=== PATIENT | female | born 1950 | race Caucasian/White ===

== ENCOUNTER → 2023-09-18 08:28 | Outpatient (REF) | payer MEDICARE, OTHER, SELFPAY ==
[2023-09-18 10:07] LABS: % Basophils 1.3 % (0-2); % Eosinophils 4.7 % (0-6); % Immature Granulocytes 0.3 % (0-0.5); % Monocytes 8.9 % (1.7-9.3); % Neutrophils 37.8 % (42.2-75.2); Absolute Basophils 0.1 10^3/uL (0-0.2); Absolute Eosinophils 0.3 10^3/uL (0-0.7); Absolute Lymphocytes 2.9 10^3/uL (1.2-3.4); Absolute Monocytes 0.6 10^3/uL (0.1-0.6); Absolute Neutrophils 2.3 10^3/uL (1.4-6.5); Hematocrit 33.2 % (37.0-47.0); Hemoglobin 11.1 g/dL (12.0-16.0); Mean Corp Hgb Conc. 33.4 g/dL (33.0-37.0); Mean Corpuscular Hgb 29.7 pg (27.0-31.0); Mean Corpuscular Volume 88.8 fL (81.0-99.0); Mean Platelet Volume 8.8 fL (7.4-10.4); Nucleated Red Blood Cells % 0 %; Platelet Count 366 10^3/uL (130-400); Red Blood Cell Count 3.74 10^6/uL (4.20-5.40); White Blood Cell Count 6.2 10^3/uL (4.8-10.8)
[2023-09-18 10:34] LABS: ALT (SGPT) 14 U/L (0-35); AST (SGOT) 21 U/L (14-36); Albumin 3.6 g/dl (3.5-5.0); Alkaline Phosphatase 60 U/L (38-126); Blood Urea Nitrogen 14 mg/dl (7-17); Calcium 9.4 mg/dl (8.4-10.2); Carbon Dioxide 27 mmol/L (22-30); Chloride 102 mmol/L (98-107); Glucose 105 mg/dl (70-99); HDL Cholesterol 59 mg/dl; LDL Cholesterol, Calculated 72 mg/dl; Potassium 4.1 mmol/L (3.5-5.1); Sodium 137 mmol/L (135-145); Total Bilirubin 0.4 mg/dl (0.2-1.3); Total Cholesterol 152 mg/dl (50-199); Total Protein 6.3 g/dl (6.3-8.2); Triglyceride 106 mg/dl (10-149); Very Low Density Lipoprotein 21 mg/dl (0-30); eGFR > 60.00
== END ==
LOC: HWLAB 08:28
PROVIDERS: ATTENDING PHYSICIAN Internal Medicine
DX: Z00.00 Encounter for general adult medical examination without abnormal findings (principal); E78.5 Hyperlipidemia, unspecified; I10 Essential (primary) hypertension
CPT/HCPCS: 36415; 80053; 80061; 85025

== ENCOUNTER → 2023-12-24 11:41 | Outpatient (REF) | payer MEDICARE, OTHER, SELFPAY ==
[2023-12-24 14:47] LABS: % Basophils 1.1 % (0-2); % Eosinophils 3.3 % (0-6); % Immature Granulocytes 0.2 % (0-0.5); % Lymphocytes 28.7 % (20.5-51.1); % Monocytes 8.6 % (1.7-9.3); % Neutrophils 58.1 % (42.2-75.2); Absolute Basophils 0.1 10^3/uL (0-0.2); Absolute Eosinophils 0.2 10^3/uL (0-0.7); Absolute Lymphocytes 1.6 10^3/uL (1.2-3.4); Absolute Monocytes 0.5 10^3/uL (0.1-0.6); Absolute Neutrophils 3.3 10^3/uL (1.4-6.5); Hematocrit 33.5 % (37.0-47.0); Hemoglobin 11.4 g/dL (12.0-16.0); Mean Corpuscular Volume 88.2 fL (81.0-99.0); Mean Platelet Volume 8.8 fL (7.4-10.4); Nucleated Red Blood Cells % 0 %; Platelet Count 373 10^3/uL (130-400); Red Cell Dist. Width 12.6 % (11.5-14.5); White Blood Cell Count 5.7 10^3/uL (4.8-10.8)
[2023-12-24 14:52] LABS: Urine Albumin Negative (Neg - Trace); Urine Bilirubin Negative (Negative); Urine Character Clear (Clear); Urine Color Yellow; Urine Glucose Negative (Negative); Urine Ketone Negative (Negative); Urine Leukocyte Negative (Negative); Urine Nitrite Negative (Negative); Urine Occult Blood Negative (Negative); Urine Specific Gravity 1.005 (<1.030); Urine Urobilinogen Negative (Neg - 1+)
[2023-12-24 15:21] LABS: Iron 120 ug/dl (37-170)
[2023-12-24 15:32] LABS: Percent Saturation 35 % (20-50); Total Iron Binding Capacity 339 ug/dl (265-497)
== END ==
LOC: HWLAB 11:41
PROVIDERS: ATTENDING PHYSICIAN Internal Medicine
DX: Z00.00 Encounter for general adult medical examination without abnormal findings (principal); E78.5 Hyperlipidemia, unspecified; I10 Essential (primary) hypertension; D64.9 Anemia, unspecified
CPT/HCPCS: 36415; 81003; 83540; 83550; 85025

== ENCOUNTER → 2024-04-11 10:12 | Outpatient (REF) | payer MEDICARE, OTHER, SELFPAY ==
[2024-04-11 11:39] LABS: % Basophils 0.5 % (0-2); % Eosinophils 0.2 % (0-6); % Immature Granulocytes 0.8 % (0-0.5); % Lymphocytes 34.8 % (20.5-51.1); % Monocytes 9.2 % (1.7-9.3); % Neutrophils 54.5 % (42.2-75.2); Absolute Basophils 0.1 10^3/uL (0-0.2); Absolute Immature Granulocytes 0.1 10^3/uL (0-0.05); Absolute Lymphocytes 4.5 10^3/uL (1.2-3.4); Absolute Monocytes 1.2 10^3/uL (0.1-0.6); Absolute Neutrophils 7.1 10^3/uL (1.4-6.5); Hematocrit 33.8 % (37.0-47.0); Hemoglobin 11.8 g/dL (12.0-16.0); Mean Corp Hgb Conc. 34.9 g/dL (33.0-37.0); Mean Corpuscular Volume 88.7 fL (81.0-99.0); Mean Platelet Volume 8.8 fL (7.4-10.4); Nucleated Red Blood Cells % 0 %; Platelet Count 407 10^3/uL (130-400); Red Blood Cell Count 3.81 10^6/uL (4.20-5.40)
[2024-04-11 12:24] LABS: ALT (SGPT) 17 U/L (0-35); AST (SGOT) 21 U/L (14-36); Albumin 4.3 g/dl (3.5-5.0); Alkaline Phosphatase 66 U/L (38-126); Blood Urea Nitrogen 20 mg/dl (7-17); Carbon Dioxide 30 mmol/L (22-30); Chloride 100 mmol/L (98-107); Direct Bilirubin 0.3 mg/dl (0.0-0.4); Glucose 95 mg/dl (70-99); Potassium 4.1 mmol/L (3.5-5.1); Sodium 137 mmol/L (135-145); Total Bilirubin 0.4 mg/dl (0.2-1.3); Total Protein 7.2 g/dl (6.3-8.2); eGFR > 60.00
[2024-04-11 12:52] LABS: TSH Reflex To Free T4 0.81 uIU/ml (0.47-4.68)
== END ==
LOC: HWLAB 10:12
PROVIDERS: ATTENDING PHYSICIAN Specialist; FAMILY PHYSICIAN Internal Medicine
DX: R21 Rash and other nonspecific skin eruption (principal); L29.8 Other pruritus; I10 Essential (primary) hypertension
CPT/HCPCS: 36415; 80048; 80076; 84443; 85025

== ENCOUNTER 2024-08-30 10:31 | Emergency (ER) | payer MEDICARE, OTHER, SELFPAY ==
[2024-08-30 10:41] VITALS: BP 139/85
[2024-08-30 11:15] VITALS: BMI 29.2
[2024-08-30 11:23] VITALS: BP 146/107
[2024-08-30] MEDS: NSS 1000 IV ×2 (11:31→13:16)
[2024-08-30 11:36] LABS: % Basophils 0.2 % (0-2); % Immature Granulocytes 0.4 % (0-0.5); % Lymphocytes 10.8 % (20.5-51.1); % Monocytes 10.5 % (1.7-9.3); % Neutrophils 78.1 % (42.2-75.2); Absolute Immature Granulocytes 0.1 10^3/uL (0-0.05); Absolute Lymphocytes 1.4 10^3/uL (1.2-3.4); Absolute Monocytes 1.4 10^3/uL (0.1-0.6); Absolute Neutrophils 10.1 10^3/uL (1.4-6.5); Hematocrit 40.7 % (37.0-47.0); Hemoglobin 14.1 g/dL (12.0-16.0); Mean Corp Hgb Conc. 34.6 g/dL (33.0-37.0); Mean Corpuscular Hgb 28.5 pg (27.0-31.0); Mean Corpuscular Volume 82.2 fL (81.0-99.0); Mean Platelet Volume 8.9 fL (7.4-10.4); Nucleated Red Blood Cells % 0 %; Platelet Count 349 10^3/uL (130-400); Red Blood Cell Count 4.95 10^6/uL (4.20-5.40); Red Cell Dist. Width 12.7 % (11.5-14.5); White Blood Cell Count 12.9 10^3/uL (4.8-10.8)
[2024-08-30 11:49] LABS: ALT (SGPT) 23 U/L (0-35); AST (SGOT) 30 U/L (14-36); Albumin 4.9 g/dl (3.5-5.0); Alkaline Phosphatase 69 U/L (38-126); Blood Urea Nitrogen 32 mg/dl (7-17); Calcium 9.8 mg/dl (8.4-10.2); Carbon Dioxide 19 mmol/L (22-30); Chloride 104 mmol/L (98-107); Estimated Creatinine Clearance 62 ml/min; Glucose 123 mg/dl (70-99); Magnesium 2.4 mg/dl (1.6-2.3); Potassium 4.2 mmol/L (3.5-5.1); Sodium 140 mmol/L (135-145); eGFR > 60.00
[2024-08-30 12:00] VITALS: BP 130/64
--- NOTE | 2024-08-30 12:18 | ED.GENMED ---
History of Present Illness
General
Chief Complaint: Abdominal Symptoms
Time Seen by Provider: 08/30/24 11:13
History of Present Illness
History of Present Illness:
TIME OF INITIAL ENCOUNTER: 1 PM
HPI: The patient was brought here by her son due to concerns of dehydration. For 5 days ago, the patient had some nausea and loose stool. She no longer has any loose stool but has since had very poor p.o. intake. Her son try to get some
electrolytes into her last night but he was very concerned of dehydration. She had very poor p.o. intake recently. She has some back pain related to being on the stretcher but has no significant abdominal pain.
EXAM:
GENERAL: Appears somewhat generally weak
HEENT: Dry oral mucosa
CARDIOVASCULAR: No murmurs, borderline tachycardic heart rate, regular rhythm, No chest wall tenderness
PULMONARY: No respiratory distress, breath sounds are clear and equal
ABDOMEN: Soft with no peritoneal signs, no tenderness
NEUROLOGIC: Excellent strength all extremities, no coordination deficits
PSYCHIATRIC: Appropriate mental status, normal insight and judgement
EXTREMITIES: Nontender, no edema, moves all extremities equally
SKIN: No rash, no lesions
NUMBER AND COMPLEXITY OF PROBLEMS ADDRESSED AT THE ENCOUNTER
� Chronic conditions affecting care: High blood pressure, hyperlipidemia, has had hysterectomy, asthma
� Acute Exacerbation and/or Progression of Chronic Illness: This is an acute problem
� Differential Diagnosis includes: Viral syndrome, dehydration, RICKI, electrolyte abnormality, SBO
AMOUNT AND/OR COMPLEXITY OF DATA TO BE REVIEWED AND ANALYZED
� I performed an independent evaluation of and my interpretation is:
EKG:
CT: CT scan of the abdomen pelvis personally reviewed�no acute fine however chronic lumbar spine findings noted
X-rays:
Laboratory Studies: White count 12.9, hemoglobin 14.1, bicarb 19, creatinine 0.8, BUN 32, potassium 4.2
Other:
� Review of other/old records: I reviewed records, the patient was seen here in 2019 related to back pain
� Clinical information was obtained by an independent historian: I spoke to son at bedside
� Prescriptions/Medications Considered but not given:
� Further testing considered but not performed:
RISK OF COMPLICATIONS AND/OR MORBIDITY OR MORTALITY OF PATIENT MANAGEMENT
� Social determinants of health affecting care: Lives at home
� Discussion with other providers:
� Escalation of care including admission/observation vs risk of discharge considered: Low bicarb noted with elevated BUN�IV fluids given. The patient has mild leukocytosis, but the patient has no significant abdominal pain
currently. Given the patient's age, will obtain CT imaging as she does have poor p.o. intake despite having resolution of the diarrhea has resolved
ANY OTHER UPDATES:
3:30 PM: I reassessed linden feels improvement. Possible viral syndrome she was given nearly 2 L of fluid by IV here.
Phy Exam
Physical Exam
Physical Exam:
See HPI
Course
Orders/Labs/Results
Orders:
Orders
08/30/24 11:14
Norovirus by PCR Urgent
[facility] Source: Feces/Stool
Specimen Description:
STOOL [C difficile Antigen & Toxins] Urgent
[facility] Source: Feces/Stool
Specimen Description:
0.9% Sodium Chloride 1000 ml [Nss] 1,000 ml IV BOLUS
08/30/24 11:25
Complete Blood Count/With Diff Urgent
Comprehensive Metabolic Panel Urgent
Magnesium Urgent
08/30/24 13:01
0.9% Sodium Chloride 1000 ml [Nss] 1,000 ml IV BOLUS
Ondansetron Injectable [Zofran] 4 mg IV NOW STA
08/30/24 13:02
CT Abd/pelvis W Iv Cont Urgent
Comment:
Reason For Exam: loss of appetite, nausea, some pain
Abnormal Lab Results
08/30/24
11:25
WBC 12.9 H 10^3/uL
(4.8-10.8)
Abs Immat Gran (auto) 0.1 H 10^3/uL
(0-0.05)
Absolute Neuts (auto) 10.1 H 10^3/uL
(1.4-6.5)
Absolute Monos (auto) 1.4 H 10^3/uL
(0.1-0.6)
Neutrophils % 78.1 H %
(42.2-75.2)
Lymphocytes % 10.8 L %
(20.5-51.1)
Monocytes % 10.5 H %
(1.7-9.3)
Carbon Dioxide 19 L mmol/L
(22-30)
BUN 32 H mg/dl
(7-17)
Glucose 123 H mg/dl
(70-99)
Magnesium 2.4 H mg/dl
(1.6-2.3)
08/30/24 11:25
08/30/24 11:25
Vital Signs
Initial and Last Documented VS:
Initial Vital Signs
Temp Pulse Resp BP Pulse Ox
36.9 C 102 20 139/85 97
08/30/24 10:41 08/30/24 10:41 08/30/24 10:41 08/30/24 10:41 08/30/24 10:41
Last Documented Vital Signs
Temp Pulse Resp BP Pulse Ox
36.9 C 102 20 146/69 99
08/30/24 10:41 08/30/24 10:41 08/30/24 10:41 08/30/24 15:00 08/30/24 14:56
*Critical Care Note
Total Time (30-74mins, 75-104mins- exclusive of procedures): Not Applicable
ED Attending Note
-
Portions of this chart may have been created with voice recognition software.� Occasional wrong word or��sound alike� substitutions may have occurred due to the inherent limitations of voice recognition software.
Discharge Plan
Departure
Patient Disposition: Home (Routine Discharge)
Date of Disposition: 08/30/24
Time of Disposition: 15:39
Patient with high blood pressure during this ER visit?: Yes
Discharge Problem:
Dehydration
Instructions: Dehydration, Adult (DC), Nausea and Vomiting, Adult (DC)
Prescriptions:
New
ondansetron HCl 4 mg tablet
4 mg PO Q8H PRN (Reason: nausea and vomiting) Qty: 14 0RF
No Action
Allergy Pill
1 tab PO DAILYPRN PRN (Reason: allergies)
atorvastatin [Lipitor] 20 MG tablet
20 mg PO QPM
ibuprofen [Advil Liqui-Gel] 200 MG capsule
1 - 3 tablets PO Q6HPRN PRN (Reason: pain)
acetaminophen-codeine 1 TABLET tablet
1 tab PO [id number] PRN (Reason: pain)
tramadol 50 MG tablet
50 mg PO Q6HPRN PRN (Reason: pain)
acetaminophen [Tylenol Extra Strength] 500 MG tablet
1,000 mg PO Q6HPRN PRN (Reason: pain)
gabapentin 300 MG capsule
300 mg PO TID
fluoxetine 20 MG capsule
20 mg PO HS
glucosamine HCl 1,500 MG tablet
1,500 mg PO DAILY
Methcarbamol
500 mg PO Q8HPRN PRN (Reason: pain, spasm)
prednisone 20 MG tablet
40 mg PO DAILY Qty: 6 0RF
Referrals:
Dakotah Hilton MD [Family Provider] -
Sharmaine Gonzalez DO [Active] - Next open appointment
Activity Restrictions/Additional Instructions:
CT of the abdomen pelvis shows:
The lung bases are clear.
The liver is normal.
The spleen is normal.
The pancreas is normal.
The gallbladder is normal.
The kidneys are normal.
There is no hydronephrosis.
The adrenals are normal.
There is no abdominal lymphadenopathy.
There is no pelvic lymphadenopathy.
There is no inguinal lymphadenopathy.
The urinary bladder is normal.
The anteverted uterus is normal
Imaging for bowel pathology is limited by the lack of enteric contrast
There are no areas of pericolonic inflammatory stranding.
There is degenerative disc disease at L4-5 and L5-S1 with 5 mm grade 1 spondylolisthesis of L5 on S1
On blood work, bicarbonate level was slightly low and the BUN level was slightly high�this can be seen with dehydration. The electrolytes were normal.
I am sending a prescription for nausea medicine, Zofran, to your pharmacy. Return here if worse or other concerns.
For pain, you could take 2 [id number] extra strength Tylenol every 6 hours as the maximum dose. Intermittent use of ibuprofen would also be okay but try to limit the use of this as it can lead to stomach upset.
Interventions
Interventions:
*Risk Screen - Suicide Last Done: 08/30/24 10:41
*General Assessment Last Done: 08/30/24 10:41
*Neglect/Abuse Screening Last Done: 08/30/24 10:41
ED- Fall Risk Assessment Last Done: 08/30/24 11:15
*ED COVID-19 Vaccine History Last Done: 08/30/24 11:15
[id number]-Axcdcaccdv Assessment Last Done: 08/30/24 11:15
Discharge Date and Time
Print Language: HUNGARIAN
[2024-08-30 13:00] VITALS: BP 137/72
[2024-08-30] MEDS: ZOFRAN 4 MG IV (13:16)
[2024-08-30 14:00] VITALS: BP 137/124
[2024-08-30 15:00] VITALS: BP 146/69
== END 2024-08-30 16:03 | disposition home or self-care (01) ==
LOC: EMR 10:31
PROVIDERS: EMERGENCY PHYSICIAN Emergency Medicine; FAMILY PHYSICIAN Internal Medicine
DX: E86.0 Dehydration (principal)
CPT/HCPCS: 99284; 96374; 96361; 74177; 80053; 83735; 85025; Q9967

== ENCOUNTER → 2025-04-21 10:18 | Outpatient (REF) | payer MEDICARE, OTHER, SELFPAY ==
[2025-04-21 12:19] LABS: Hematocrit 35.3 % (37.0-47.0); Hemoglobin 12.2 g/dL (12.0-16.0); Mean Corp Hgb Conc. 34.6 g/dL (33.0-37.0); Mean Corpuscular Volume 88.3 fL (81.0-99.0); Nucleated Red Blood Cells % 0 %; Platelet Count 398 10^3/uL (130-400); Red Cell Dist. Width 12.8 % (11.5-14.5)
[2025-04-21 12:28] LABS: ALT (SGPT) 16 U/L (0-35); AST (SGOT) 24 U/L (14-36); Albumin 4.5 g/dl (3.5-5.0); Alkaline Phosphatase 58 U/L (38-126); Blood Urea Nitrogen 13 mg/dl (7-17); Calcium 9.8 mg/dl (8.4-10.2); Carbon Dioxide 28 mmol/L (22-30); Chloride 103 mmol/L (98-107); Glucose 114 mg/dl (70-99); HDL Cholesterol 85 mg/dl; LDL Cholesterol, Calculated 92 mg/dl; Potassium 4.0 mmol/L (3.5-5.1); Sodium 137 mmol/L (135-145); Total Protein 7.2 g/dl (6.3-8.2); Very Low Density Lipoprotein 19 mg/dl (0-30); eGFR > 60.00
== END ==
LOC: HWLAB 10:18
PROVIDERS: ATTENDING PHYSICIAN Nurse Practitioner Acute Care; FAMILY PHYSICIAN Internal Medicine
DX: Z00.01 Encounter for general adult medical examination with abnormal findings (principal); I10 Essential (primary) hypertension; E78.5 Hyperlipidemia, unspecified; E66.3 Overweight
CPT/HCPCS: 36415; 80053; 80061; 85025